=== PATIENT | male | born 1990 | race American Indian/Alaskan Native ===

== ENCOUNTER 2021-03-28 12:42 | Emergency (ER) | payer OTHER, SELFPAY ==
--- NOTE | 2021-03-28 13:00 | Event Note ---
ED Screening Note Date of service: 03/28/21 Time: 12:59 ED Screening Note: Complaints of shortness of breath, cough, headache, and nausea x4 days Tested positive for Covid on Tuesday Denies any past medical history Denies productive cough This initial assessment/diagnostic orders/clinical plan/treatment(s) is/are subject to change based on patients health status, clinical progression and re- assessment by fellow clinical providers in the ED. Further treatment and workup at subsequent clinical providers discretion. Patient/guardian urged not to elope from the ED as their condition may be serious if not clinically assessed and managed. Initial orders include: Labs Chest x-ray
--- NOTE | 2021-03-28 13:25 | XRay Report ---
CHEST 2 VIEWS INDICATION / CLINICAL INFORMATION: covid +, SOB. COMPARISON: None available. FINDINGS: SUPPORT DEVICES: None. HEART / MEDIASTINUM: No significant abnormality. LUNGS / PLEURA: Increased opacities in perihilar regions. There is also more focal area of opacity in the right upper lung. No pneumothorax. ADDITIONAL FINDINGS: No significant additional findings. IMPRESSION: 1. Multifocal opacities most significant in the right upper lung. Findings could represent Covid pneu monia. Follow-up recommended. Signer Name: Werner Mak MD Signed: 03/28/2021 1:21 PM Workstation Name: [id number]
[2021-03-28 13:47] LABS: Monocytes # (Auto) 0.4 K/mm3 (0.0-0.8); Monocytes % (Auto) 13.1 % (0.0-7.3)
[2021-03-28 13:55] LABS: Basophils % (Auto) 0.6 % (0.0-1.8); Hematocrit 53.7 % (35.5-45.6); Hemoglobin 18.8 gm/dl (11.8-15.2); Lymphocytes # (Auto) 0.8 K/mm3 (1.2-5.4); Lymphocytes % (Auto) 27.7 % (13.4-35.0); Mean Corpuscular HGB Conc 35 % (32-34); Mean Corpuscular Volume 90 fl (84-94); Platelet Count 215 K/mm3 (140-440); Red Blood Count 5.97 M/mm3 (3.65-5.03); Red Cell Distribution Width 13.1 % (13.2-15.2)
[2021-03-28 13:57] LABS: Alanine Aminotransferase 35 units/L (7-56); Albumin 3.8 g/dL (3.9-5); BUN/Creatinine Ratio 5; Blood Urea Nitrogen 6 mg/dL (9-20); Calcium 8.5 mg/dL (8.4-10.2); Hemolysis Index 8
--- NOTE | 2021-03-28 15:18 | Emergency Department Report ---
- General Chief Complaint: Dyspnea/Respdistress Stated Complaint: COVID POSITIVE Time Seen by Provider: 03/28/21 12:58 Source: patient Mode of arrival: Ambulatory Limitations: No Limitations - History of Present Illness Initial Comments: Patient is a 30-year-old F Citizen Of [place] male with no significant past medical problems who is complaining of cough body aches and congestion. Patient tested positive for Covid 19 3 days ago. Continued to have cough some shortness of breath with exertion and some nausea vomiting body aches. Patient last vomited yesterday. Does have decreased appetite secondary to decreased taste and smell. Denies diarrhea sore throat. Does have mild headache. The headache and body aches are estimated at a 5 out of 10 in severity. - Related Data Previous Rx's Medication Instructions Recorded Last Taken Type Albuterol Mdi (or & Nicu Only) 2 puff IH QID PRN #1 inhalation 03/28/21 Unknown Rx [ProAir HFA Inhaler] Azithromycin [Zithromax Z-REFUGIO] 250 mg PO DAILY #6 tablet 03/28/21 Unknown Rx Benzonatate [Tessalon Perles] 100 mg PO Q8HR #10 capsule 03/28/21 Unknown Rx HYDROcodone/APAP 5-325 [[place] 1 each PO Q6HR PRN #14 tablet 03/28/21 Unknown Rx 5/325] Ondansetron [Zofran Odt] 4 mg PO Q8HR #10 tab.rapdis 03/28/21 Unknown Rx predniSONE [Deltasone] 50 mg PO QDAY #5 tab 03/28/21 Unknown Rx ED Review of Systems ROS: Stated complaint: COVID POSITIVE Other details as noted in HPI Comment: All other systems reviewed and negative ED Past Medical Hx - Past Medical History Previous Medical History?: No - Surgical History Past Surgical History?: No - Social History Smoking Status: Never Smoker Substance Use Type: Alcohol - Medications Home Medications: Home Medications Medication Instructions Recorded Confirmed Last Taken Type Albuterol Mdi (or & Nicu Only) 2 puff IH QID PRN #1 inhalation 03/28/21 Unknown Rx [ProAir HFA Inhaler] Azithromycin [Zithromax Z-REFUGIO] 250 mg PO DAILY #6 tablet 03/28/21 Unknown Rx Benzonatate [Tessalon Perles] 100 mg PO Q8HR #10 capsule 03/28/21 Unknown Rx HYDROcodone/APAP 5-325 [[place] 1 each PO Q6HR PRN #14 tablet 03/28/21 Unknown Rx 5/325] Ondansetron [Zofran Odt] 4 mg PO Q8HR #10 tab.rapdis 03/28/21 Unknown Rx predniSONE [Deltasone] 50 mg PO QDAY #5 tab 03/28/21 Unknown Rx ED Physical Exam - General Limitations: No Limitations General appearance: alert, in no apparent distress - Head Head exam: Present: atraumatic, normocephalic - Eye Eye exam: Present: normal appearance - ENT ENT exam: Present: mucous membranes moist - Neck Neck exam: Present: normal inspection - Respiratory Respiratory exam: Present: normal lung sounds bilaterally, rhonchi (clears w cough). Absent: respiratory distress, wheezes, rales - Cardiovascular Cardiovascular Exam: Present: regular rate, normal rhythm, normal heart sounds. Absent: systolic murmur, diastolic murmur, rubs, gallop - GI/Abdominal GI/Abdominal exam: Present: soft, normal bowel sounds. Absent: distended, tende rness, guarding, rebound - Rectal Rectal exam: Present: deferred - Extremities Exam Extremities exam: Present: normal inspection - Back Exam Back exam: Present: normal inspection - Neurological Exam Neurological exam: Present: alert, oriented X3 - Psychiatric Psychiatric exam: Present: normal affect, normal mood - Skin Skin exam: Present: warm, dry, intact, normal color. Absent: rash ED Course Vital Signs 03/28/21 12:57 Temperature 99 F Pulse Rate 103 H Respiratory 18 Rate Blood Pressure 131/92 O2 Sat by Pulse 97 Oximetry ED Medical Decision Making - Lab Data Result diagrams: 03/28/21 13:24 03/28/21 13:24 Labs 03/28/21 03/28/21 13:24 13:24 WBC 3.0 L RBC 5.97 H Hgb 18.8 H Hct 53.7 H MCV 90 MCH 32 MCHC 35 H RDW 13.1 L Plt Count 215 Lymph % (Auto) 27.7 [place] % (Auto) 13.1 H Eos % (Auto) 0.0 Baso % (Auto) 0.6 Lymph # (Auto) 0.8 L [place] # (Auto) 0.4 Eos # (Auto) 0.0 Baso # (Auto) 0.0 Seg Neutrophils % 59.2 Seg Neutrophils # 1.8 Sodium 133 L Potassium 4.1 Chloride 93.7 L Carbon Dioxide 27 Anion Gap 16 BUN 6 L Creatinine 1.1 Estimated GFR > 60 BUN/Creatinine Ratio 5 Glucose 115 H Calcium 8.5 Total Bilirubin 0.20 AST 46 H ALT 35 Alkaline Phosphatase 53 Total Protein 7.0 Albumin 3.8 L Albumin/Globulin Ratio 1.2 - Radiology Data [facility] [address] [place] [address] XRay Report Signed Patient: TRU HARDING MR#: [id number] : 1990 Acct:[id number] Age/Sex: 30 / M ADM Date: 03/28/21 Loc: ED Attending Dr: Ordering Physician: BRYSON DIXON Date of Service: 03/28/21 Procedure(s): XR chest routine 2V Accession Number(s): [id number] cc: BRYSON DIXON Fluoro Time In Minutes: CHEST 2 VIEWS INDICATION / CLINICAL INFORMATION: covid +, SOB. COMPARISON: None available. FINDINGS: SUPPORT DEVICES: None. HEART / MEDIASTINUM: No significant abnormality. LUNGS / PLEURA: Increased opacities in perihilar regions. There is also more focal area of opacity in the right upper lung. No pneumothorax. ADDITIONAL FINDINGS: No significant additional findings. IMPRESSION: 1. Multifocal opacities most significant in the right upper lung. Findings could represent Covid pneumonia. Follow-up recommended. Signer Name: Werner Mak MD Signed: 03/28/2021 1:21 PM Workstation Name: [email or web address] - Medical Decision Making Patient is post ambulatory O2 saturation is 96%. Observed him walking in the hallway and he appears well. Patient given medication for symptomatic relief and discharged home. Critical care attestation.: If time is entered above; I have spent that time in minutes in the direct care of this critically ill patient, excluding procedure time. ED Disposition Clinical Impression: Pneumonia due to COVID-19 virus Disposition: DC-01 TO HOME OR SELFCARE Is pt being admited?: No Does the pt Need Aspirin: Yes Condition: Stable Instructions: Bacterial Pneumonia (ED), COVID-19 Frequently Asked Questions, Prevent the Spread of COVID-19 if You Are Sick - [facility] Additional Instructions: Please buy a portable home pulse oximeter which can be bought at any of the local pharmacies or grocery stores such as [employer] or [employer]. Please use this anytime you feel short of breath. If your oxygen level is below 90% please return to the emergency department. Referrals: PRIMARY CARE, [Primary Care Provider] - 3-5 Days Time of Disposition: 16:15
[2021-03-28 16:45] VITALS: BP 104/96
== END 2021-03-28 16:45 | disposition home or self-care (01) ==
LOC: ED 12:42
DX: U07.1 COVID-19 (principal); J12.89 Other viral pneumonia; Z79.899 Other long term (current) drug therapy
CPT/HCPCS: 36415; 71046; 80053; 85025; 99283